=== PATIENT | female | born 1970 | race African-American/Black ===

== ENCOUNTER → 2017-08-01 | Outpatient (CLI) | payer BC ==
[~2017-08-01] MED LIST: BENADRYL; EPIPEN; METHYLPREDNISOLONE
[2017-08-01 06:51] LABS: CLARITY URINE TURBID (CLEAR); COLOR URINE YELLOW (YELLOW); KETONES URINE NEGATIVE (NEGATIVE); LEUKOCYTE ESTERASE URINE 2+ (NEGATIVE); NITRITE URINE NEGATIVE (NEGATIVE); OCCULT BLOOD URINE NEGATIVE (NEGATIVE); PROTEIN URINE NEGATIVE (NEGATIVE); SPECIFIC GRAVITY URINE 1.018 (1.005-1.030); UROBILINOGEN URINE 0.2 E.U./dL (0.2-1.0)
[2017-08-01 06:54] LABS: EOSINOPHILS % 5.1 % (0.0-5.0); HEMATOCRIT. 37.6 % (36.0-48.0); HEMOGLOBIN. 12.5 g/dL (12.0-16.0); LYMPHOCYTES % 39.5 % (20.0-50.0); MEAN CORPUSCULAR HEMOGLOBIN 27.4 pg (28.0-32.0); MEAN CORPUSCULAR VOLUME 82.5 fL (81.0-99.0); MEAN PLATELET VOLUME 8.1 fl (7.4-10.4); MONOCYTES % 7.5 % (2.0-8.0); NEUTROPHILS % 46.9 % (40.0-76.0); PLATELET 350 x1000/uL (130-400); RED BLOOD CELL COUNT 4.55 mill/uL (4.2-5.4); RED CELL DISTRIBUTION WIDTH 13.8 % (11.6-14.6)
[2017-08-01 08:08] LABS: CHLORIDE 99 mEq/L (98-107)
[2017-08-01 08:22] LABS: HDL CHOLESTEROL 54 mg/dL (40-59); LDL CHOLESTEROL 139 mg/dL (5-100)
== END | disposition home or self-care (01) ==
LOC: LAB 06:12
PROVIDERS: ATTEND Internal Medicine Nephrology
DX: E11.9 Type 2 diabetes mellitus without complications (principal); I10 Essential (primary) hypertension
CPT/HCPCS: 36415; 80048; 80061; 81001; 83036

== ENCOUNTER → 2017-11-15 | Outpatient (CLI) | payer BC ==
[2017-11-15 09:31] LABS: BASOPHILS % 1.1 % (0.0-2.0); EOSINOPHILS % 4.9 % (0.0-5.0); HEMATOCRIT. 41.2 % (36.0-48.0); HEMOGLOBIN. 13.8 g/dL (12.0-16.0); LYMPHOCYTES % 43.6 % (20.0-50.0); MEAN CORPUSCULAR HEMOGLOBIN 27.6 pg (28.0-32.0); MEAN CORPUSCULAR VOLUME 82.8 fL (81.0-99.0); MONOCYTES % 7.7 % (2.0-8.0); NEUTROPHILS % 42.7 % (40.0-76.0); PLATELET 379 x1000/uL (130-400); RED BLOOD CELL COUNT 4.98 mill/uL (4.2-5.4); RED CELL DISTRIBUTION WIDTH 14.3 % (11.6-14.6)
[2017-11-15 09:43] LABS: CHLORIDE 102 mEq/L (98-107)
[2017-11-15 09:50] LABS: LDL CHOLESTEROL 141 mg/dL (5-100)
[2017-11-15 09:51] LABS: HDL CHOLESTEROL 68 mg/dL (40-59)
== END | disposition home or self-care (01) ==
LOC: MAMMO 08:56
PROVIDERS: ATTEND Internal Medicine Nephrology
DX: Z12.31 Encounter for screening mammogram for malignant neoplasm of breast (principal); I10 Essential (primary) hypertension; E11.9 Type 2 diabetes mellitus without complications
CPT/HCPCS: 36415; 77067; 80053; 80061; 82043; 82570; 83036; 85025

== ENCOUNTER → 2018-05-23 | Outpatient (CLI) | payer BC ==
[2018-05-23 15:43] LABS: BASOPHILS % 0.9 % (0.0-2.0); HEMATOCRIT. 39.5 % (36.0-48.0); HEMOGLOBIN. 13.6 g/dL (12.0-16.0); LYMPHOCYTES % 32.6 % (20.0-50.0); MEAN CORPUSCULAR VOLUME 83.9 fL (81.0-99.0); NEUTROPHILS % 53.5 % (40.0-76.0); PLATELET 339 x1000/uL (130-400); RED BLOOD CELL COUNT 4.71 mill/uL (4.2-5.4); RED CELL DISTRIBUTION WIDTH 14.7 % (11.6-14.6)
[2018-05-23 15:45] LABS: CLARITY URINE CLEAR (CLEAR); COLOR URINE YELLOW (YELLOW); KETONES URINE NEGATIVE (NEGATIVE); LEUKOCYTE ESTERASE URINE NEGATIVE (NEGATIVE); NITRITE URINE NEGATIVE (NEGATIVE); OCCULT BLOOD URINE NEGATIVE (NEGATIVE); PH URINE 5.5 (4.5-8.0); PROTEIN URINE NEGATIVE (NEGATIVE); SPECIFIC GRAVITY URINE 1.012 (1.005-1.030)
[2018-05-23 15:52] LABS: CHLORIDE 100 mEq/L (98-107)
[2018-05-23 15:59] LABS: LDL CHOLESTEROL 170 mg/dL (5-100)
[2018-05-23 16:00] LABS: HDL CHOLESTEROL 49 mg/dL (40-59)
== END | disposition home or self-care (01) ==
LOC: LAB 15:10
PROVIDERS: ATTEND Internal Medicine Nephrology
DX: M47.896 Other spondylosis, lumbar region (principal); E11.9 Type 2 diabetes mellitus without complications; I10 Essential (primary) hypertension
CPT/HCPCS: 36415; 72100; 80048; 80061; 83036

== ENCOUNTER → 2019-03-13 | Outpatient (CLI) | payer BC ==
[2019-03-13 08:32] LABS: BASOPHILS % 1.1 % (0.0-2.0); EOSINOPHILS % 4.6 % (0.0-5.0); HEMATOCRIT. 38.5 % (36.0-48.0); HEMOGLOBIN. 13.1 g/dL (12.0-16.0); MEAN CORPUSCULAR HEMOGLOBIN 28.2 pg (28.0-32.0); MEAN CORPUSCULAR VOLUME 83.2 fL (81.0-99.0); MEAN PLATELET VOLUME 8.1 fl (7.4-10.4); MONOCYTES % 7.1 % (2.0-8.0); NEUTROPHILS % 47.2 % (40.0-76.0); PLATELET 324 x1000/uL (130-400); RED BLOOD CELL COUNT 4.63 mill/uL (4.2-5.4); RED CELL DISTRIBUTION WIDTH 13.8 % (11.6-14.6)
[2019-03-13 08:46] LABS: CHLORIDE 103 mEq/L (98-107)
[2019-03-13 08:53] LABS: LDL CHOLESTEROL 175 mg/dL (5-100)
[2019-03-13 08:55] LABS: HDL CHOLESTEROL 51 mg/dL (40-59)
== END | disposition home or self-care (01) ==
LOC: LAB 07:50
PROVIDERS: ATTEND Internal Medicine Nephrology
DX: E11.9 Type 2 diabetes mellitus without complications (principal)
CPT/HCPCS: 36415; 80061; 83036

== ENCOUNTER → 2019-06-12 | Outpatient (CLI) | payer BC | END | disposition home or self-care (01) | LOC: MAMMO 12:53 | PROVIDERS: ATTEND Internal Medicine Geriatric Medicine | DX: Z12.31 Encounter for screening mammogram for malignant neoplasm of breast (principal) | CPT/HCPCS: 77067 ==

== ENCOUNTER 2020-05-14 19:45 | Emergency (ER) | payer BC ==
[~2020-05-14] VITALS: Ht 162.6 cm; Wt 104.0 kg
[2020-05-14 19:50] VITALS: BP 172/116
== END 2020-05-14 23:36 | disposition left against medical advice (07) ==
LOC: ER 19:45
DX: Z53.21 Procedure and treatment not carried out due to patient leaving prior to being seen by health care provider (principal)